=== PATIENT | male | born 1975 | race Caucasian/White ===

== ENCOUNTER 2019-11-01 14:14 | Emergency (ER) | payer OTHER, SELFPAY ==
[2019-11-01 14:25] VITALS: BP 140/95; PULSE 92; RESP 18; TEMP 36.9; O2SAT 100
--- NOTE | 2019-11-01 15:03 | ED.SKABFB ---
HPI - Skin/Abscess/Foreign Bdy General Chief complaint: Skin/Abscess/Foreign Body Stated complaint: Hives Time Seen by Provider: 11/01/19 14:45 Source: patient and RN notes reviewed Mode of arrival: ambulatory Limitations: no limitations History of Present Illness HPI narrative: 44-year-old male who presents to [facility] with complaints of red diffuse rash to his arms, on his trunk, and upper back since 10pm last night. Patient states that he ate some watermelon flavored star burst candy last night and thinks that he has had some type of reaction to dyes or flavorings in the candy. Patient states that he had a similar reaction 2 years ago to artifical coloring in something he ate. Patient has red itchy circular rash noted to trunk and arms mainly with a few hive type lesions noted to his back, denies any difficulty with swallowing, no shortness of breath, no wheezing or cough, SAO2 100% on room air. Patient states that he has been taking Benadryl for the itching. MD complaint: rash Onset (ago): hour(s) (since 10 pm last night) Tetanus up to date: yes Location: chest (Trunk and back), back, LUE and RUE Severity: moderate Quality: pruritic Pain Consistency: other (no pain) Relieving factors: none Exacerbating factors: movement Context: other (food) Associated symptoms: itching Treatments prior to arrival: Benadryl Related Data Home Medications Medication Instructions Recorded Confirmed ascorbic acid (vitamin C) [Vitamin 500 mg PO DAILY 11/01/19 11/01/19 C] atorvastatin 20 mg PO DAILY 11/01/19 11/01/19 Allergies Allergy/AdvReac Type Severity Reaction Status Date / Time No Known Allergies Allergy Verified 11/01/19 14:29 Review of Systems Review of Systems: Narrative: CONSTITUTIONAL: Denies fever, chills, or sweats. EYES: Denies visual changes, redness, or discharge. ENT: Denies rhinorrhea, congestion, sore throat, or otalgia. CARDIOVASCULAR: Denies chest pain, palpitations, or edema. RESPIRATORY: Denies cough or dyspnea. GASTROINTESTINAL: Denies abdominal pain, nausea, vomiting, or diarrhea. GENITOURINARY: Denies dysuria or hematuria. SKIN: positive red scattered circular rash with itching, blanchable hives MUSCULOSKELETAL: Denies back pain, joint pain, or myalgia. NEUROLOGIC: Denies headache, numbness, or weakness. PSYCHIATRIC: Denies anxiety or depression. All systems reviewed & are unremarkable except as noted in HPI and below PMFSH Past Medical History Medical History (Updated 11/03/19 @ 15:37 by Gisselle Yousif NP) Hyperlipidemia Social History Social History (Updated 11/03/19 @ 15:39 by Gisselle Yousif NP) Smoking status: Never smoker Living arrangements: with family Gender identity (if verbalized by the patient): Male Comments At time of signature, agree with nursing past medical, social history. There is no relevant family history pertinent to the presenting complaint Exam Narrative: Exam Narrative: GENERAL: Well-appearing, well-nourished, and in no acute distress. HEAD: Normocephalic, atraumatic. EYES: PERRLA and EOMI. ENT: Nares clear, no rhinorrhea or epistaxis. Mucous membranes moist.TM's normal with good light reflex, throat pink with no swelling or tonsil enlargement NECK: Supple.no lymphadenopathy CHEST: Clear to auscultation. No respiratory distress.SAO2 100% on room air HEART: Regular rate and rhythm. No murmur heard. Normal peripheral pulses. ABDOMEN: Soft, nontender, nondistended, normal active bowel sounds. EXTREMITIES: Normal range of motion. No edema. SKIN: Warm, dry,red scattered circular rash with itching with some noted hives especially to arms and truck, few to back. NEURO: No focal deficits. Alert and oriented x3. Course Vital Signs Vital signs: Vital Signs Temperature 36.9 C 11/01/19 14:25 Pulse Rate 92 11/01/19 14:25 Respiratory Rate 18 11/01/19 14:25 Blood Pressure 140/95 H 11/01/19 14:25 Pulse Oximetry 100 11/01/19 14:25 Temperature 3
== END 2019-11-01 15:20 | disposition home or self-care (01) ==
PROVIDERS: Emergency Provider Registered Nurse; PCP Family Medicine
DX: L27.2 Dermatitis due to ingested food (principal); E78.00 Pure hypercholesterolemia, unspecified
CPT/HCPCS: 99213; G0463